=== PATIENT | male | born 1965 | race African-American/Black ===

== ENCOUNTER 2021-05-11 09:52 | Inpatient (IN) | payer MEDICAID ==
[~2021-05-11] VITALS: Ht 175.3 cm; Wt 97.2 kg
[2021-05-11] MEDS ORDERED: ASPIRIN (09:55)
[2021-05-11] MEDS ORDERED: GLIPIZIDE (09:55)
[2021-05-11] MEDS ORDERED: HYDROCHLOROTHIAZIDE PO (09:55)
[2021-05-11] MEDS ORDERED: MORPHINE SULFATE 4 MG/ML CPJ (NOT FOR IM USE) IV STA (10:04)
[2021-05-11] MEDS ORDERED: ONDANSETRON HCL 4MG/2ML INJ IV STA (10:04)
[2021-05-11] MEDS ORDERED: ASPIRIN 325MG EC TABLET PO ONE (10:15)
[2021-05-11] MEDS ORDERED: SODIUM CHLORIDE 0.9% 1,000 ML IV ONE (10:15)
[2021-05-11 10:34] LABS: HEMATOCRIT. 42.4 % (42.0-52.0); HEMOGLOBIN. 13.8 g/dL (14.0-18.0); MEAN CORPUSCULAR HEMOGLOBIN 30.5 pg (28.0-32.0); MEAN CORPUSCULAR VOLUME 93.5 fL (80.0-94.0); MEAN PLATELET VOLUME 9.6 fl (7.4-10.4); PLATELET 236 x1000/uL (130-400); RED BLOOD CELL COUNT 4.54 mill/uL (4.7-6.1); RED CELL DISTRIBUTION WIDTH 14.1 % (11.6-14.6)
[2021-05-11 10:39] LABS: CHLORIDE 106 mEq/L (98-107)
[2021-05-11 10:44] LABS: INR 1.2; PROTHROMBIN TIME 12.5 sec (9.6-11.0)
[2021-05-11] MEDS ORDERED: AZITHROMYCIN 500 MG in DEXT 5% WATER 250 ML IV ONE (10:45)
[2021-05-11] MEDS ORDERED: CEFTRIAXONE 1 G PREMIX 50 ML IV ONE (10:45)
[2021-05-11] MEDS ORDERED: IOHEXOL 350 MG/ML 200ML INFUS..BTL IV ONE (12:41)
[2021-05-11] MEDS ORDERED: IOHEXOL-300 100 ML BOTTLE ONE (12:41)
[2021-05-11 13:48] LABS: PLATELET ESTIMATE NORMAL
[2021-05-11 15:10] VITALS: BP_SYST 124; BP_SYST 167; BP_DIAS 94
[2021-05-11] MEDS ORDERED: ATOR10TA69 PO (15:54)
[2021-05-11] MEDS: ENOXAPARIN 30MG/0.3ML SYR SUBCUT SCH (16:39)
[2021-05-11 20:00] VITALS: BP 135/102
[2021-05-11] MEDS: ATORVASTATIN CALCIUM 10MG TABLET PO SCH (22:31)
[2021-05-12] VITALS: BP 118/84
[2021-05-12 04:00] VITALS: BP 117/80
[2021-05-12] MEDS: ENOXAPARIN 30MG/0.3ML SYR SUBCUT SCH ×2 (05:01→18:09)
[2021-05-12 05:42] LABS: CHLORIDE 108 mEq/L (98-107)
[2021-05-12 06:30] LABS: BASOPHILS % 0.4 % (0.0-2.0); HEMATOCRIT. 39.1 % (42.0-52.0); HEMOGLOBIN. 12.6 g/dL (14.0-18.0); LYMPHOCYTES % 19.2 % (20.0-50.0); MEAN CORPUSCULAR HEMOGLOBIN 30.3 pg (28.0-32.0); MEAN CORPUSCULAR VOLUME 93.7 fL (80.0-94.0); MEAN PLATELET VOLUME 10.2 fl (7.4-10.4); MONOCYTES % 9.8 % (2.0-8.0); NEUTROPHILS % 69.6 % (40.0-76.0); PLATELET 227 x1000/uL (130-400); RED BLOOD CELL COUNT 4.17 mill/uL (4.7-6.1); RED CELL DISTRIBUTION WIDTH 14.6 % (11.6-14.6)
[2021-05-12 08:38] VITALS: BP 125/78
[2021-05-12] MEDS ORDERED: CEFTRIAXONE 1 G PREMIX 50 ML IV SCH (09:00)
[2021-05-12] MEDS: AZITHROMYCIN 500 MG in DEXT 5% WATER 250 ML IV SCH (09:12)
[2021-05-12] MEDS: GLIPIZIDE 5MG TABLET PO SCH (09:12)
[2021-05-12] MEDS: ASPIRIN 81MG TABLET PO SCH (09:12)
[2021-05-12] MEDS: HYDROCHLOROTHIAZIDE 25MG TABLET PO SCH (09:19)
[2021-05-12 12:00] VITALS: BP 123/51
[2021-05-12] MEDS: CEFTRIAXONE 1,000 MG in DEXTROSE 5% WATER 50 ML IV SCH (12:22)
[2021-05-12 13:39] LABS: BG BASE EXCESS 2.5 mmol/L (-2.0-2.0); BG CARBOXYHEMOGLOBIN 0.6 % (0.5-1.5); BG DEOXYHEMOGLOBIN 8.8 % (0.0-5.0); BG HCO3 ACT 25.8 mmol/L (22.0-26.0); BG METHEMOGLOBIN 0.2 % (0.0-1.5); BG OXYGEN SATURATION 91.1 % (92.0-98.5); BG OXYHEMOGLOBIN 90.4 % (94.0-97.0); BG PH 7.474 (7.350-7.450); BG SAMPLE SITE RIGHT RADIAL; BG TOTAL HEMOGLOBIN 14.1 g/dL (12.0-18.0); BG VENT MODE ROOM AIR
[2021-05-12 16:49] VITALS: BP 129/66
[2021-05-12 20:00] VITALS: BP 147/107
[2021-05-12] MEDS: ATORVASTATIN CALCIUM 10MG TABLET PO SCH (21:17)
[2021-05-13 04:00] VITALS: BP 158/112
[2021-05-13] MEDS: ENOXAPARIN 30MG/0.3ML SYR SUBCUT SCH ×2 (05:00→16:48)
[2021-05-13 06:34] LABS: CHLORIDE 106 mEq/L (98-107)
[2021-05-13] MEDS: GLIPIZIDE 5MG TABLET PO SCH (07:10)
[2021-05-13] MEDS ORDERED: MIDAZOLAM HCL 5 MG/5 ML VIAL ONE (07:57)
[2021-05-13] MEDS ORDERED: FENTANYL CITRATE/PF 50MCG/ML 5ML VIAL ONE (07:57)
[2021-05-13] MEDS ORDERED: VERAPAMIL HCL 2.5 MG/1 ML 2ML VIAL IV ONE (07:57)
[2021-05-13] MEDS ORDERED: IOHEXOL-300 100 ML BOTTLE ONE (07:58)
[2021-05-13] MEDS ORDERED: LIDOCAINE HCL 1% 20ML VIAL (Pyxis) INJ ONE (07:58)
[2021-05-13] MEDS ORDERED: IODIXANOL 320MG/ML 100 ML BOTTLE IV ONE (07:58)
[2021-05-13 08:00] VITALS: BP 155/113
[2021-05-13] MEDS ORDERED: POTASSIUM CHLORIDE 10MEQ TABLET SR PO NR (08:00)
[2021-05-13] MEDS: AZITHROMYCIN 500 MG in DEXT 5% WATER 250 ML IV SCH (08:29)
[2021-05-13] MEDS: ASPIRIN 81MG TABLET PO SCH (08:29)
[2021-05-13] MEDS: HYDROCHLOROTHIAZIDE 25MG TABLET PO SCH (08:48)
[2021-05-13 09:22] LABS: *AMPHETAMINES SCREEN URINE NEGATIVE (NEGATIVE); *BARBITURATES SCREEN URINE NEGATIVE (NEGATIVE); *BENZODIAZEPINES SCREEN URINE NEGATIVE (NEGATIVE); *COCAINE SCREEN URINE NEGATIVE (NEGATIVE); METHADONE URINE SCREEN NEGATIVE (NEGATIVE)
[2021-05-13 09:24] LABS: CANNABINOID URINE SCREEN NEGATIVE (NEGATIVE); OPIATES URINE SCREEN NEGATIVE (NEGATIVE); PHENCYCLIDINE URINE SCREEN NEGATIVE (NEGATIVE)
[2021-05-13] MEDS ORDERED: ACETAMINOPHEN 325MG TABLET PO PRN (10:00)
[2021-05-13] MEDS ORDERED: FUROSEMIDE 40MG/4ML VIAL IVP NR (10:00)
[2021-05-13] MEDS ORDERED: ATROPINE SULFATE 1MG/10ML SYR IV PRN (10:00)
[2021-05-13] MEDS ORDERED: MIDAZOLAM HCL 2 MG/2 ML VIAL ONE (10:01)
[2021-05-13] MEDS ORDERED: FENTANYL CITRATE/PF 50MCG/ML 2ML VIAL ONE (10:01)
[2021-05-13] MEDS: SPIRONOLACTONE 25MG TABLET PO SCH (11:21)
[2021-05-13 12:29] VITALS: BP 139/101
[2021-05-13] MEDS: CEFTRIAXONE 1,000 MG in DEXTROSE 5% WATER 50 ML IV SCH (13:28)
[2021-05-13] MEDS: LISINOPRIL 5MG TABLET PO SCH (13:56)
[2021-05-13 16:00] VITALS: BP 127/106
[2021-05-13 20:07] VITALS: BP 130/80
[2021-05-13] MEDS: ATORVASTATIN CALCIUM 10MG TABLET PO SCH (21:33)
[2021-05-14 00:06] VITALS: BP 136/89
[2021-05-14 04:00] VITALS: BP 138/91
[2021-05-14] MEDS: ENOXAPARIN 30MG/0.3ML SYR SUBCUT SCH (05:14)
[2021-05-14] MEDS: GLIPIZIDE 5MG TABLET PO SCH (06:40)
[2021-05-14 07:15] LABS: CHLORIDE 105 mEq/L (98-107)
[2021-05-14 07:16] LABS: BASOPHILS % 0.9 % (0.0-2.0); EOSINOPHILS % 2.2 % (0.0-5.0); HEMATOCRIT. 40.4 % (42.0-52.0); HEMOGLOBIN. 13.3 g/dL (14.0-18.0); MEAN CORPUSCULAR HEMOGLOBIN 30.6 pg (28.0-32.0); MEAN CORPUSCULAR VOLUME 93.1 fL (80.0-94.0); MEAN PLATELET VOLUME 9.7 fl (7.4-10.4); MONOCYTES % 8.7 % (2.0-8.0); NEUTROPHILS % 67.2 % (40.0-76.0); PLATELET 347 x1000/uL (130-400); RED BLOOD CELL COUNT 4.34 mill/uL (4.7-6.1); RED CELL DISTRIBUTION WIDTH 14.2 % (11.6-14.6)
[2021-05-14 08:00] VITALS: BP 133/104
[2021-05-14] MEDS ORDERED: FUROSEMIDE 40MG TABLET PO SCH (09:00)
[2021-05-14] MEDS: AZITHROMYCIN 500 MG in DEXT 5% WATER 250 ML IV SCH (10:20)
[2021-05-14] MEDS: LISINOPRIL 5MG TABLET PO SCH (10:21)
[2021-05-14] MEDS: SPIRONOLACTONE 25MG TABLET PO SCH (10:21)
[2021-05-14] MEDS: ASPIRIN 81MG TABLET PO SCH (10:21)
[2021-05-14] MEDS ORDERED: LISI-186 PO (10:48)
[2021-05-14] MEDS ORDERED: FURO40TA5 PO (10:48)
[2021-05-14] MEDS ORDERED: SPIR25TA PO (10:48)
[2021-05-14] MEDS ORDERED: ATOR10TA PO (10:48)
[2021-05-14] MEDS ORDERED: AZIT250T12 MT (10:48)
[2021-05-14] MEDS ORDERED: ASPI-1160 PO (10:48)
[2021-05-14 12:56] VITALS: BP 135/100
== END 2021-05-14 13:18 | disposition home or self-care (01) | DRG 720 ==
LOC: ER 09:56 → 7WST 12:29 → EDBEDREQ 12:34 → ENRESERV 14:33 → 8WST 05-12 05:20
PROVIDERS: ADMIT Internal Medicine; ATTEND Internal Medicine
PROC: 4A023N7 Measurement of Cardiac Sampling and Pressure, Left Heart, Percutaneous Approach (ICD-10-PCS; principal; 2021-05-13)
PROC: B211YZZ Fluoroscopy of Multiple Coronary Arteries using Other Contrast (ICD-10-PCS; 2021-05-13)
PROC: B215YZZ Fluoroscopy of Left Heart using Other Contrast (ICD-10-PCS; 2021-05-13)
DX: A41.9 Sepsis, unspecified organism (principal); J96.01 Acute respiratory failure with hypoxia; I21.4 Non-ST elevation (NSTEMI) myocardial infarction; I50.21 Acute systolic (congestive) heart failure; I11.0 Hypertensive heart disease with heart failure; J18.9 Pneumonia, unspecified organism; I42.8 Other cardiomyopathies; Z20.822 Contact with and (suspected) exposure to COVID-19; E11.9 Type 2 diabetes mellitus without complications; I25.10 Atherosclerotic heart disease of native coronary artery without angina pectoris; F17.210 Nicotine dependence, cigarettes, uncomplicated; Z79.899 Other long term (current) drug therapy; Z71.6 Tobacco abuse counseling
CPT/HCPCS: 36415; 36600; 71045; 71260; 74177; 80048; 80053; 80305; 82375; 82805; 83605; 83880; 84484; 85025; 93005; 93306; 93458; 99291; C1769; C1887; C1893; J0456; J0696; J1644; J1650; J1940; J2250; J2270; J2405; J3010; J3490; J7030; J7060; Q9967; U0003; U0005

== ENCOUNTER 2023-04-04 15:40 | Emergency (ER) | payer MEDICAID, OTHER ==
[~2023-04-04] VITALS: Ht 177.8 cm; Wt 77.0 kg
[~2023-04-04 15:40] MED LIST: ASPI-1160 PO; ASPIRIN; ATOR10TA PO; ATOR10TA69 PO; AZIT250T12 MT; FURO40TA5 PO; GLIPIZIDE; HYDROCHLOROTHIAZIDE PO; LISI-186 PO; SPIR25TA PO
[2023-04-04 16:52] LABS: BASOPHILS % 0.7 % (0.0-2.0); EOSINOPHILS % 1.7 % (0.0-5.0); HEMATOCRIT. 44.3 % (42.0-52.0); HEMOGLOBIN. 14.6 g/dL (14.0-18.0); LYMPHOCYTES % 20.8 % (20.0-50.0); MEAN CORPUSCULAR HEMOGLOBIN 30.8 pg (28.0-32.0); MEAN CORPUSCULAR VOLUME 93.1 fL (80.0-94.0); MEAN PLATELET VOLUME 9.5 fl (7.4-10.4); NEUTROPHILS % 69.8 % (40.0-76.0); PLATELET 248 x1000/uL (130-400); RED BLOOD CELL COUNT 4.76 mill/uL (4.7-6.1); RED CELL DISTRIBUTION WIDTH 13.6 % (11.6-14.6)
[2023-04-04 16:55] LABS: INR 1.2; PROTHROMBIN TIME 12.4 sec (9.6-11.0)
[2023-04-04 16:56] LABS: CHLORIDE 109 mEq/L (98-107)
[2023-04-04 17:11] LABS: ETHANOL BLOOD < 10 mg/dL
[2023-04-04] MEDS ORDERED: HYDRALAZINE 20MG/ML VIAL IV ONE (17:30)
[2023-04-04] MEDS ORDERED: AZITHROMYCIN 500MG/250ML 250 ML IV ONE (18:45)
[2023-04-04] MEDS ORDERED: FUROSEMIDE 40MG/4ML VIAL IVP ONE (18:45)
[2023-04-04] MEDS ORDERED: TRAZODONE HCL 50MG TABLET PO SCH (18:45)
[2023-04-04] MEDS ORDERED: CEFTRIAXONE 1GM PREMIX 50 ML IV ONE (18:45)
[2023-04-04] MEDS ORDERED: DIPHENHYDRAMINE 50MG/ML VIAL IV ONE (18:45)
[2023-04-04 19:04] LABS: CLARITY URINE CLEAR (CLEAR); COLOR URINE DARK YELLOW (YELLOW); KETONES URINE TRACE (NEGATIVE); LEUKOCYTE ESTERASE URINE TRACE (NEGATIVE); NITRITE URINE NEGATIVE (NEGATIVE); OCCULT BLOOD URINE 2+ (NEGATIVE); PH URINE 5.5 (4.5-8.0); PROTEIN URINE 4+ (NEGATIVE); SPECIFIC GRAVITY URINE 1.038 (1.005-1.030)
[2023-04-04] MEDS ORDERED: MAGNESIUM 2 G PREMIX 50 ML IV NR (19:45)
[2023-04-04] MEDS ORDERED: MAGNESIUM 2 G PREMIX 50 ML IV ONE (19:45)
[2023-04-04 22:42] VITALS: BP 144/99
== END 2023-04-04 22:57 | disposition short-term general hospital (02) ==
LOC: ER 15:40 → CANBEDREQ 04-05 19:39
DX: I11.0 Hypertensive heart disease with heart failure (principal); I50.9 Heart failure, unspecified; J18.9 Pneumonia, unspecified organism; G47.00 Insomnia, unspecified; E11.9 Type 2 diabetes mellitus without complications; Z20.822 Contact with and (suspected) exposure to COVID-19
CPT/HCPCS: 36415; 71045; 80053; 80320; 81003; 83605; 83735; 83880; 84443; 84484; 85025; 85610; 87040; 87426; 87804; 93005; 96365; 96366; 96367; 96375; 99291; C9803; J0360; J0456; J0696; J1200; J1940; J3475; G0480

== ENCOUNTER 2023-12-02 02:42 | Emergency (ER) | payer OTHER ==
[~2023-12-02] VITALS: Ht 175.3 cm; Wt 82.0 kg
[2023-12-02 02:42] VITALS: TEMP 98.5; O2SAT 98
[~2023-12-02 02:42] MED LIST changes: +AMLO10TA80 PO; +APIX5TAB PO; -ASPI-1160 PO; +ASPI-1406 PO; -ASPIRIN; -ATOR10TA PO; -ATOR10TA69 PO; +ATOR20TA PO; -AZIT250T12 MT; +CARV25TA47 PO; +CELE-116 PO; +DICL100G58 TP; +DIGO125T80 MT; +DULO30CA52 PO; +ERGO1250 PO; +FURO-152 MT; -FURO40TA5 PO; +GABA-290 PO; +GLIP5TAB22 PO; -GLIPIZIDE; +HYDR100T31 PO; -HYDROCHLOROTHIAZIDE PO; +METO2.5T2 MT; +TRAM50TA3 PO; +TRAZ-251 PO; +ZOLP5TAB2 PO
[2023-12-02 03:19] LABS: BASOPHILS % 0.9 % (0.0-2.0); EOSINOPHILS % 1.7 % (0.0-5.0); HEMATOCRIT. 39.9 % (42.0-52.0); HEMOGLOBIN. 12.7 g/dL (14.0-18.0); LYMPHOCYTES % 24.5 % (20.0-50.0); MEAN CORPUSCULAR HEMOGLOBIN 27.7 pg (28.0-32.0); MEAN CORPUSCULAR HGB CONC 31.8 g/dL (31.0-37.0); MEAN CORPUSCULAR VOLUME 87.1 fL (80.0-94.0); MEAN PLATELET VOLUME 8.6 fl (7.4-10.4); MONOCYTES % 7.9 % (2.0-8.0); PLATELET 253 x1000/uL (130-400); RED BLOOD CELL COUNT 4.58 mill/uL (4.7-6.1); RED CELL DISTRIBUTION WIDTH 15.9 % (11.6-14.6); WHITE BLOOD COUNT 6.7 x1000/uL (4.5-11.0)
[2023-12-02 04:01] LABS: ALANINE AMINOTRANSFERASE 15 IU/L (10-49); ALBUMIN 3.2 g/dL (3.2-4.8); ASPARTATE AMINOTRANSFERASE 22 IU/L (<34); BILIRUBIN TOTAL 0.5 mg/dL (0.1-1.0); CALCIUM 8.5 mg/dL (8.7-10.4); CARBON DIOXIDE 28 mEq/L (21-32); CHLORIDE 101 mEq/L (98-107); GLUCOSE 100 mg/dL (70-105); POTASSIUM 4.2 mEq/L (3.5-5.1); PROTEIN TOTAL 6.8 g/dL (6.0-8.3); SODIUM 136 mEq/L (136-145); TROPONIN I HIGH SENSITIVITY 28 ng/L (3.0-53); UREA NITROGEN BLOOD 22 mg/dL (9-23)
[2023-12-02 04:05] LABS: ETHANOL BLOOD < 10 mg/dL (<10)
[2023-12-02] MEDS ORDERED: FUROSEMIDE 40MG/4ML VIAL IVP ONE (05:15)
[2023-12-02 06:12] LABS: TROPONIN I HIGH SENSITIVITY 27 ng/L (3.0-53)
[2023-12-02 07:21] VITALS: BP 110/69; PULSE 79; RESP 18
== END 2023-12-02 08:09 | disposition home or self-care (01) ==
LOC: ER 02:42
DX: I50.9 Heart failure, unspecified (principal); R06.02 Shortness of breath; E11.9 Type 2 diabetes mellitus without complications; I11.0 Hypertensive heart disease with heart failure; I48.91 Unspecified atrial fibrillation; E78.00 Pure hypercholesterolemia, unspecified
CPT/HCPCS: 80053; 80320; 83880; 85025; 84484; 36415; 71045; 93005; 96374; 99285; J1940; G0480

== ENCOUNTER 2024-01-28 01:49 | Emergency (ER) | payer OTHER ==
[~2024-01-28] VITALS: Ht 182.9 cm; Wt 100.0 kg
[2024-01-28 01:51] VITALS: O2SAT 100
[2024-01-28 03:06] LABS: BASOPHILS % 0.8 % (0.0-2.0); EOSINOPHILS % 0.8 % (0.0-5.0); HEMATOCRIT. 40.8 % (42.0-52.0); HEMOGLOBIN. 12.8 g/dL (14.0-18.0); LYMPHOCYTES % 18.8 % (20.0-50.0); MEAN CORPUSCULAR HEMOGLOBIN 27.6 pg (28.0-32.0); MEAN CORPUSCULAR HGB CONC 31.4 g/dL (31.0-37.0); MEAN PLATELET VOLUME 8.5 fl (7.4-10.4); MONOCYTES % 9.2 % (2.0-8.0); NEUTROPHILS % 70.4 % (40.0-76.0); PLATELET 195 x1000/uL (130-400); RED BLOOD CELL COUNT 4.63 mill/uL (4.7-6.1); RED CELL DISTRIBUTION WIDTH 20.6 % (11.6-14.6); WHITE BLOOD COUNT 6.9 x1000/uL (4.5-11.0)
[2024-01-28 03:19] LABS: ALANINE AMINOTRANSFERASE 28 IU/L (10-49); ALBUMIN 3.4 g/dL (3.2-4.8); ASPARTATE AMINOTRANSFERASE 41 IU/L (<34); BILIRUBIN TOTAL 1.5 mg/dL (0.1-1.0); CARBON DIOXIDE 26 mEq/L (21-32); CHLORIDE 104 mEq/L (98-107); CREATININE 1.3 mg/dL (0.6-1.3); GLUCOSE 105 mg/dL (70-105); POTASSIUM 4.3 mEq/L (3.5-5.1); PROTEIN TOTAL 6.4 g/dL (6.0-8.3); SODIUM 135 mEq/L (136-145); TROPONIN I HIGH SENSITIVITY 37 ng/L (3.0-53); UREA NITROGEN BLOOD 24 mg/dL (9-23)
[2024-01-28 03:26] LABS: INR 1.6; PARTIAL THROMBOPLASTIN TIME 28.5 sec (23.4-31.0); PROTHROMBIN TIME 17.2 sec (9.6-11.0)
[2024-01-28 03:53] LABS: CALCIUM 8.5 mg/dL (8.7-10.4)
[2024-01-28 04:51] LABS: TROPONIN I HIGH SENSITIVITY 45 ng/L (3.0-53)
[2024-01-28] MEDS: FUROSEMIDE 40MG/4ML VIAL IV ONE (05:23)
[2024-01-28] MEDS: ASPIRIN 81MG TABLET PO ONE (05:24)
[2024-01-28] MEDS: ASPIRIN 81MG TABLET PO NR (05:24)
[2024-01-28] MEDS: FUROSEMIDE 40MG/4ML VIAL IV NR (05:25)
[2024-01-28 06:38] VITALS: BP 129/97; PULSE 107; RESP 20; TEMP 97.6
== END 2024-01-28 07:51 | disposition short-term general hospital (02) ==
LOC: ER 01:49
DX: R07.9 Chest pain, unspecified (principal); I11.0 Hypertensive heart disease with heart failure; I50.9 Heart failure, unspecified
CPT/HCPCS: 80053; 83880; 85025; 85610; 85730; 84484; 36415; 71045; 93005; 96374; 99285; Z7610; J1940

== ENCOUNTER 2024-02-12 00:44 | Emergency (ER) | payer OTHER ==
[~2024-02-12] VITALS: Ht 177.8 cm; Wt 96.0 kg
[2024-02-12 00:46] VITALS: O2SAT 99
[2024-02-12 01:31] LABS: BASOPHILS % 1.2 % (0.0-2.0); EOSINOPHILS % 1.3 % (0.0-5.0); HEMOGLOBIN. 11.6 g/dL (14.0-18.0); LYMPHOCYTES % 13.7 % (20.0-50.0); MEAN CORPUSCULAR HEMOGLOBIN 27.9 pg (28.0-32.0); MEAN CORPUSCULAR HGB CONC 31.3 g/dL (31.0-37.0); MEAN CORPUSCULAR VOLUME 89.2 fL (80.0-94.0); MEAN PLATELET VOLUME 8.8 fl (7.4-10.4); MONOCYTES % 9.5 % (2.0-8.0); NEUTROPHILS % 74.3 % (40.0-76.0); PLATELET 242 x1000/uL (130-400); RED BLOOD CELL COUNT 4.15 mill/uL (4.7-6.1); RED CELL DISTRIBUTION WIDTH 21.1 % (11.6-14.6); WHITE BLOOD COUNT 6.6 x1000/uL (4.5-11.0)
[2024-02-12 01:53] LABS: ALANINE AMINOTRANSFERASE 24 IU/L (10-49); ALBUMIN 3.3 g/dL (3.2-4.8); ASPARTATE AMINOTRANSFERASE 34 IU/L (<34); BILIRUBIN TOTAL 0.8 mg/dL (0.1-1.0); CALCIUM 7.9 mg/dL (8.7-10.4); CARBON DIOXIDE 27 mEq/L (21-32); CHLORIDE 108 mEq/L (98-107); CREATININE 1.1 mg/dL (0.6-1.3); GLUCOSE 82 mg/dL (70-105); POTASSIUM 4.1 mEq/L (3.5-5.1); PROTEIN TOTAL 6.2 g/dL (6.0-8.3); SODIUM 141 mEq/L (136-145); TROPONIN I HIGH SENSITIVITY 36 ng/L (3.0-53); UREA NITROGEN BLOOD 19 mg/dL (9-23)
[2024-02-12 02:55] LABS: INR 1.3; PROTHROMBIN TIME 14.2 sec (9.6-11.0)
[2024-02-12 04:26] LABS: CLARITY URINE CLEAR (CLEAR); COLOR URINE YELLOW (YELLOW); GLUCOSE URINE NEGATIVE (NEGATIVE); KETONES URINE TRACE (NEGATIVE); LEUKOCYTE ESTERASE URINE NEGATIVE (NEGATIVE); NITRITE URINE NEGATIVE (NEGATIVE); OCCULT BLOOD URINE NEGATIVE (NEGATIVE); PH URINE 5.5 (4.5-8.0); PROTEIN URINE 3+ (NEGATIVE); SPECIFIC GRAVITY URINE 1.023 (1.005-1.030)
[2024-02-12 07:42] LABS: TROPONIN I HIGH SENSITIVITY 36 ng/L (3.0-53)
[2024-02-12 08:30] LABS: WBC URINE 0-2 /hpf (0-2)
[2024-02-12 08:31] LABS: BACTERIA URINE NONE SEEN; SQUAMOUS EPITHELIAL CELL URINE NONE SEEN /lpf (RARE/1+)
[2024-02-12 09:49] VITALS: BP 143/105; PULSE 88; RESP 20; TEMP 98.3
== END 2024-02-12 10:39 | disposition short-term general hospital (02) ==
LOC: ER 00:44 → EDBEDREQ 06:24 → ER 10:39
DX: M79.89 Other specified soft tissue disorders (principal); I11.0 Hypertensive heart disease with heart failure; I50.9 Heart failure, unspecified; F17.200 Nicotine dependence, unspecified, uncomplicated
CPT/HCPCS: 36415; 71045; 80053; 81003; 83880; 84484; 85025; 93005; 99285

== ENCOUNTER 2024-04-16 19:14 | Emergency (ER) | payer OTHER ==
[~2024-04-16] VITALS: Ht 177.8 cm; Wt 90.0 kg
[2024-04-16 19:17] VITALS: BP 170/90; PULSE 90; RESP 19; TEMP 98.1; O2SAT 100
== END 2024-04-16 22:45 | disposition left against medical advice (07) ==
LOC: ER 19:14
DX: T65.91XA Toxic effect of unspecified substance, accidental (unintentional), initial encounter (principal); Z53.21 Procedure and treatment not carried out due to patient leaving prior to being seen by health care provider

== ENCOUNTER 2024-05-22 23:46 | Emergency (ER) | payer OTHER ==
[~2024-05-22] VITALS: Ht 175.3 cm; Wt 91.0 kg
[2024-05-22 23:47] VITALS: TEMP 98.4
[2024-05-23 00:12] LABS: BASOPHILS % 0.6 % (0.0-2.0); EOSINOPHILS % 1.2 % (0.0-5.0); HEMATOCRIT. 43.1 % (42.0-52.0); HEMOGLOBIN. 13.6 g/dL (14.0-18.0); LYMPHOCYTES % 13.7 % (20.0-50.0); MEAN CORPUSCULAR HEMOGLOBIN 29.8 pg (28.0-32.0); MEAN CORPUSCULAR HGB CONC 31.6 g/dL (31.0-37.0); MEAN CORPUSCULAR VOLUME 94.4 fL (80.0-94.0); MEAN PLATELET VOLUME 9.1 fl (7.4-10.4); MONOCYTES % 9.1 % (2.0-8.0); NEUTROPHILS % 75.4 % (40.0-76.0); PLATELET 179 x1000/uL (130-400); RED BLOOD CELL COUNT 4.57 mill/uL (4.7-6.1); RED CELL DISTRIBUTION WIDTH 17.2 % (11.6-14.6); WHITE BLOOD COUNT 7.2 x1000/uL (4.5-11.0)
[2024-05-23 00:20] LABS: CHLORIDE 106 mEq/L (98-107); POTASSIUM 4.4 mEq/L (3.5-5.1); SODIUM 140 mEq/L (136-145)
[2024-05-23 00:21] LABS: CALCIUM 8.6 mg/dL (8.7-10.4); CARBON DIOXIDE 29 mEq/L (21-32)
[2024-05-23 00:23] LABS: INR 1.4; PARTIAL THROMBOPLASTIN TIME 27.1 sec (23.4-31.0); PROTHROMBIN TIME 14.8 sec (9.6-11.0)
[2024-05-23 00:26] LABS: CREATININE 1.3 mg/dL (0.6-1.3); GLUCOSE 126 mg/dL (70-105); UREA NITROGEN BLOOD 19 mg/dL (9-23)
[2024-05-23 00:28] LABS: TROPONIN I HIGH SENSITIVITY 36 ng/L (3.0-53)
[2024-05-23 00:32] LABS: ETHANOL BLOOD < 10 mg/dL (<10)
[2024-05-23 00:44] VITALS: PULSE 93; RESP 22; O2SAT 98
[2024-05-23] MEDS: IPRATROPIUM BROMIDE (0.02%) 0.5MG/2.5ML NEB HHN STA (00:44)
[2024-05-23] MEDS: ALBUTEROL (0.083%) 2.5MG/3ML NEB HHN STA (00:44)
[2024-05-23] MEDS: FUROSEMIDE 40MG/4ML VIAL IVP NR (02:03)
[2024-05-23] MEDS: ASPIRIN 81MG TABLET PO NR (02:18)
[2024-05-23 03:14] VITALS: BP 152/111; PULSE 97; RESP 16
== END 2024-05-23 03:25 | disposition short-term general hospital (02) ==
LOC: ER 23:46 → CANBEDREQ 05-24 22:38
DX: J44.1 Chronic obstructive pulmonary disease with (acute) exacerbation (principal); I50.9 Heart failure, unspecified; I11.0 Hypertensive heart disease with heart failure; Z71.6 Tobacco abuse counseling
CPT/HCPCS: 80048; 80320; 83880; 85025; 85610; 85730; 84484; 36415; 71045; 93005; 99285; 99406; 94640; 96374; Z7610 ×7; J1940; G0480

== ENCOUNTER 2024-07-01 17:05 | Emergency (ER) | payer OTHER ==
[~2024-07-01] VITALS: Ht 180.3 cm; Wt 91.0 kg
[2024-07-01 17:07] VITALS: O2SAT 99
[2024-07-01 18:36] LABS: BASOPHILS % 1.5 % (0.0-2.0); HEMATOCRIT. 45.8 % (42.0-52.0); HEMOGLOBIN. 14.3 g/dL (14.0-18.0); LYMPHOCYTES % 21.7 % (20.0-50.0); MEAN CORPUSCULAR HEMOGLOBIN 29.8 pg (28.0-32.0); MEAN CORPUSCULAR HGB CONC 31.3 g/dL (31.0-37.0); MEAN CORPUSCULAR VOLUME 95.1 fL (80.0-94.0); MEAN PLATELET VOLUME 9.2 fl (7.4-10.4); MONOCYTES % 6.4 % (2.0-8.0); NEUTROPHILS % 68.4 % (40.0-76.0); PLATELET 177 x1000/uL (130-400); RED BLOOD CELL COUNT 4.81 mill/uL (4.7-6.1); WHITE BLOOD COUNT 6.4 x1000/uL (4.5-11.0)
[2024-07-01 18:41] LABS: CHLORIDE 108 mEq/L (98-107); POTASSIUM 4.2 mEq/L (3.5-5.1); SODIUM 140 mEq/L (136-145)
[2024-07-01 18:42] LABS: CARBON DIOXIDE 25 mEq/L (21-32)
[2024-07-01 18:43] LABS: CALCIUM 9.4 mg/dL (8.7-10.4)
[2024-07-01 18:48] LABS: CREATININE 1.2 mg/dL (0.6-1.3); GLUCOSE 89 mg/dL (70-105); UREA NITROGEN BLOOD 17 mg/dL (9-23)
[2024-07-01 18:49] LABS: ALANINE AMINOTRANSFERASE 20 IU/L (10-49); ASPARTATE AMINOTRANSFERASE 31 IU/L (<34)
[2024-07-01 18:50] LABS: BILIRUBIN DIRECT 0.7 mg/dL (<=3.0); BILIRUBIN TOTAL 1.7 mg/dL (0.1-1.0); PROTEIN TOTAL 7.3 g/dL (6.0-8.3)
[2024-07-01 20:00] LABS: TROPONIN I HIGH SENSITIVITY 57 ng/L (3.0-53)
[2024-07-01] MEDS ORDERED: FUROSEMIDE 20MG/2ML VIAL IVP ONE (20:15)
[2024-07-01] MEDS: FUROSEMIDE 40MG/4ML VIAL IVP NR (21:48)
[2024-07-01] MEDS: ASPIRIN 81MG EC TABLET PO ONE (21:48)
[2024-07-01 22:17] VITALS: BP 149/110; PULSE 92; RESP 20; TEMP 98.1
[2024-07-01] MEDS: FUROSEMIDE 40MG/4ML VIAL IVP ONE (22:18)
== END 2024-07-01 22:50 | disposition short-term general hospital (02) ==
LOC: ER 17:05
DX: R06.02 Shortness of breath (principal); I11.0 Hypertensive heart disease with heart failure; I50.9 Heart failure, unspecified; Z79.899 Other long term (current) drug therapy
CPT/HCPCS: 80076; 80048; 83880; 85025; 84484; 36415; 71045; 93005; 96374; 99291; J1940; Z7610 ×3

== ENCOUNTER 2024-10-31 04:39 | Inpatient (IN) | payer BC, MEDICAID ==
[~2024-10-31] VITALS: Ht 175.3 cm; Wt 80.7 kg
[~2024-10-31 04:39] MED LIST changes: -ZOLP5TAB2 PO
[2024-10-31] MEDS: ASPIRIN 325MG TABLET PO ONE (05:33)
[2024-10-31] MEDS: MAGNESIUM 2 G PREMIX 50 ML IV ONE (06:06)
[2024-10-31 06:10] LABS: BASOPHILS % 0.7 % (0.0-2.0); EOSINOPHILS % 0.4 % (0.0-5.0); HEMATOCRIT. 46.4 % (42.0-52.0); HEMOGLOBIN. 14.6 g/dL (14.0-18.0); LYMPHOCYTES % 17.6 % (20.0-50.0); MEAN CORPUSCULAR HEMOGLOBIN 29.7 pg (28.0-32.0); MEAN CORPUSCULAR HGB CONC 31.4 g/dL (31.0-37.0); MEAN CORPUSCULAR VOLUME 94.6 fL (80.0-94.0); MEAN PLATELET VOLUME 9.4 fl (7.4-10.4); MONOCYTES % 7.4 % (2.0-8.0); NEUTROPHILS % 73.9 % (40.0-76.0); PLATELET 197 x1000/uL (130-400); RED CELL DISTRIBUTION WIDTH 20.1 % (11.6-14.6); WHITE BLOOD COUNT 5.8 x1000/uL (4.5-11.0)
[2024-10-31 06:17] LABS: CHLORIDE 108 mEq/L (98-107); SODIUM 141 mEq/L (136-145)
[2024-10-31 06:18] LABS: CARBON DIOXIDE 25 mEq/L (21-32)
[2024-10-31 06:22] LABS: CREATININE 1.3 mg/dL (0.6-1.3)
[2024-10-31 06:23] LABS: GLUCOSE 73 mg/dL (70-105); UREA NITROGEN BLOOD 29 mg/dL (9-23)
[2024-10-31 06:24] LABS: TROPONIN I HIGH SENSITIVITY 29 ng/L (3.0-53)
[2024-10-31] MEDS ORDERED: ACETAMINOPHEN 325MG TABLET PO PRN ×2 (08:00)
[2024-10-31] MEDS ORDERED: DOCUSATE SODIUM 100MG CAPSULE PO PRN (08:00)
[2024-10-31] MEDS ORDERED: IPRATROPIUM/ALBUTEROL 0.5-3(2.5)MG/3ML NEB HHN PRN (08:00)
[2024-10-31] MEDS ORDERED: GUAIFENESIN 200MG/10ML SUGAR FREE UDC PO PRN (08:00)
[2024-10-31] MEDS ORDERED: LISINOPRIL 5MG TABLET PO SCH (09:15)
[2024-10-31] MEDS ORDERED: SPIRONOLACTONE 25MG TABLET PO SCH (09:30)
[2024-10-31 10:21] LABS: TROPONIN I HIGH SENSITIVITY 28 ng/L (3.0-53)
[2024-10-31] MEDS: APIXABAN 5 MG TABLET PO SCH (12:51)
[2024-10-31] MEDS: ASPIRIN 81MG EC TABLET PO SCH (12:51)
[2024-10-31] MEDS: AMLODIPINE 10MG TABLET PO SCH (12:52)
[2024-10-31 13:19] VITALS: PULSE 93; RESP 20
[2024-10-31] MEDS: IPRATROPIUM/ALBUTEROL 0.5-3(2.5)MG/3ML NEB HHN SCH (13:19)
[2024-10-31 14:50] VITALS: PULSE 94; RESP 24; O2SAT 97
[2024-10-31 16:00] VITALS: BP 128/101; PULSE 100; PULSE 99; RESP 16; TEMP 36.61404; TEMP 36.72516; O2SAT 100
[2024-10-31] MEDS: NITROGLYCERIN OINT 1GM/INCH UDPKT TD SCH (17:25)
[2024-10-31 20:00] VITALS: BP 128/90; PULSE 100; RESP 18; TEMP 36.44736; O2SAT 100
[2024-10-31 21:12] LABS: TROPONIN I HIGH SENSITIVITY 33 ng/L (3.0-53)
[2024-10-31] MEDS: FUROSEMIDE 40MG/4ML VIAL IVP SCH (21:41)
[2024-10-31] MEDS: ATORVASTATIN CALCIUM 20MG TABLET PO SCH (21:41)
[2024-11-01] VITALS (7 sets, daily range): BP systolic 106–137; BP diastolic 73–96; PULSE 68–101; RESP 16–20; TEMP 36.33624–36.6696; O2SAT 97–100
[2024-11-01 01:21] LABS: TROPONIN I HIGH SENSITIVITY 31 ng/L (3.0-53)
[2024-11-01] MEDS: METOLAZONE 2.5MG TABLET PO NR (05:55)
[2024-11-01 07:18] LABS: BASOPHILS % 0.5 % (0.0-2.0); HEMATOCRIT. 44.6 % (42.0-52.0); LYMPHOCYTES % 19.7 % (20.0-50.0); MEAN CORPUSCULAR HEMOGLOBIN 29.6 pg (28.0-32.0); MEAN CORPUSCULAR HGB CONC 31.5 g/dL (31.0-37.0); MEAN CORPUSCULAR VOLUME 93.9 fL (80.0-94.0); MEAN PLATELET VOLUME 9.2 fl (7.4-10.4); MONOCYTES % 10.9 % (2.0-8.0); NEUTROPHILS % 67.9 % (40.0-76.0); PLATELET 184 x1000/uL (130-400); RED BLOOD CELL COUNT 4.74 mill/uL (4.7-6.1); RED CELL DISTRIBUTION WIDTH 19.5 % (11.6-14.6); WHITE BLOOD COUNT 6.9 x1000/uL (4.5-11.0)
[2024-11-01 07:29] LABS: TRIGLYCERIDE 62 mg/dL (0-150)
[2024-11-01 07:30] LABS: LDL CHOLESTEROL 95 mg/dL (5-100)
[2024-11-01 07:31] LABS: CHOLESTEROL 128 mg/dL (<200); HDL CHOLESTEROL 23 mg/dL (>55)
[2024-11-01 07:34] LABS: CHLORIDE 105 mEq/L (98-107); SODIUM 140 mEq/L (136-145)
[2024-11-01 07:35] LABS: CARBON DIOXIDE 27 mEq/L (21-32)
[2024-11-01 07:36] LABS: CALCIUM 9.4 mg/dL (8.7-10.4)
[2024-11-01 07:40] LABS: CREATININE 1.2 mg/dL (0.6-1.3); GLUCOSE 83 mg/dL (70-105); UREA NITROGEN BLOOD 28 mg/dL (9-23)
[2024-11-01] MEDS ORDERED: FUROSEMIDE 40MG/4ML VIAL IVP SCH (09:00)
[2024-11-01 16:08] LABS: BASOPHILS % 0.7 % (0.0-2.0); EOSINOPHILS % 1.4 % (0.0-5.0); HEMATOCRIT. 46.5 % (42.0-52.0); HEMOGLOBIN. 14.6 g/dL (14.0-18.0); LYMPHOCYTES % 14.5 % (20.0-50.0); MEAN CORPUSCULAR HEMOGLOBIN 29.4 pg (28.0-32.0); MEAN CORPUSCULAR HGB CONC 31.3 g/dL (31.0-37.0); MEAN CORPUSCULAR VOLUME 93.9 fL (80.0-94.0); MONOCYTES % 9.4 % (2.0-8.0); PLATELET 191 x1000/uL (130-400); RED BLOOD CELL COUNT 4.95 mill/uL (4.7-6.1); RED CELL DISTRIBUTION WIDTH 20.3 % (11.6-14.6)
[2024-11-01 16:32] LABS: LACTIC ACID 3.2 mmol/L (0.4-2.0)
[2024-11-01] MEDS: MELATONIN 3MG TABLET PO SCH (21:47)
[2024-11-02] VITALS: BP 116/85; PULSE 68; RESP 20; TEMP 36.50292; O2SAT 100
[2024-11-02 01:43] LABS: GLUCOSE URINE NEGATIVE (NEGATIVE); KETONES URINE NEGATIVE (NEGATIVE)
[2024-11-02 01:56] LABS: *AMPHETAMINES SCREEN URINE NEGATIVE (NEGATIVE); *BARBITURATES SCREEN URINE NEGATIVE (NEGATIVE); *BENZODIAZEPINES SCREEN URINE NEGATIVE (NEGATIVE); *COCAINE SCREEN URINE NEGATIVE (NEGATIVE); METHADONE URINE SCREEN NEGATIVE (NEGATIVE)
[2024-11-02 01:57] LABS: CANNABINOID URINE SCREEN NEGATIVE (NEGATIVE); ECSTASY MDMA SCREEN URINE NEGATIVE (NEGATIVE); OPIATES URINE SCREEN NEGATIVE (NEGATIVE); PHENCYCLIDINE URINE SCREEN PRESUMTIVE POSITIVE (NEGATIVE)
[2024-11-02 04:00] VITALS: BP 104/69; PULSE 78; RESP 20; TEMP 36.55848; O2SAT 100
[2024-11-02 04:38] LABS: CLARITY URINE CLEAR (CLEAR); COLOR URINE STRAW (YELLOW); PH URINE 7.5 (4.5-8.0); PROTEIN URINE NEGATIVE (NEGATIVE); SPECIFIC GRAVITY URINE 1.007 (1.005-1.030)
[2024-11-02 04:39] LABS: LEUKOCYTE ESTERASE URINE NEGATIVE (NEGATIVE); NITRITE URINE NEGATIVE (NEGATIVE); OCCULT BLOOD URINE NEGATIVE (NEGATIVE); UROBILINOGEN URINE 0.2 E.U./dL (0.2-1.0)
[2024-11-02 07:48] VITALS: BP 116/83; PULSE 74; RESP 18; TEMP 36.50292; O2SAT 97
[2024-11-02 08:32] LABS: BASOPHILS % 0.7 % (0.0-2.0); EOSINOPHILS % 1.7 % (0.0-5.0); HEMATOCRIT. 43.4 % (42.0-52.0); HEMOGLOBIN. 14.1 g/dL (14.0-18.0); LYMPHOCYTES % 18.1 % (20.0-50.0); MEAN CORPUSCULAR HGB CONC 32.4 g/dL (31.0-37.0); MEAN CORPUSCULAR VOLUME 92.5 fL (80.0-94.0); MEAN PLATELET VOLUME 9.3 fl (7.4-10.4); MONOCYTES % 10.8 % (2.0-8.0); NEUTROPHILS % 68.7 % (40.0-76.0); PLATELET 192 x1000/uL (130-400); RED BLOOD CELL COUNT 4.69 mill/uL (4.7-6.1)
[2024-11-02 08:36] LABS: CHLORIDE 100 mEq/L (98-107); POTASSIUM 3.7 mEq/L (3.5-5.1); SODIUM 137 mEq/L (136-145)
[2024-11-02 08:37] LABS: CALCIUM 9.5 mg/dL (8.7-10.4); CARBON DIOXIDE 30 mEq/L (21-32)
[2024-11-02 08:42] LABS: CREATININE 1.4 mg/dL (0.6-1.3); GLUCOSE 86 mg/dL (70-105); TROPONIN I HIGH SENSITIVITY 33 ng/L (3.0-53); UREA NITROGEN BLOOD 31 mg/dL (9-23)
[2024-11-02 10:29] LABS: T4 FREE 1.35 ng/dL (0.89-1.76); THYROID STIMULATING HORMONE 2.68 uIU/mL (0.55-4.78)
[2024-11-02 11:41] VITALS: BP 116/80; PULSE 65; RESP 20; TEMP 36.44736; O2SAT 98
[2024-11-02] MEDS ORDERED: MELA3TAB40 PO (12:45)
[2024-11-02] MEDS ORDERED: ASPI-1406 PO (12:57)
[2024-11-02] MEDS ORDERED: ATOR20TA PO (12:57)
[2024-11-02] MEDS ORDERED: AMLO10TA80 PO (12:57)
[2024-11-02] MEDS ORDERED: CARV25TA47 PO (12:57)
[2024-11-02] MEDS ORDERED: DULO30CA52 PO ×2 (12:57→13:02)
[2024-11-02] MEDS ORDERED: ERGO1250 PO (12:57)
[2024-11-02] MEDS ORDERED: HYDR100T31 PO (12:57)
[2024-11-02] MEDS ORDERED: LISI-186 PO (12:57)
[2024-11-02] MEDS ORDERED: GLIP5TAB22 PO (12:57)
[2024-11-02] MEDS ORDERED: DIGO125T80 MT (12:57)
[2024-11-02] MEDS ORDERED: APIX5TAB PO (12:57)
[2024-11-02] MEDS ORDERED: FURO-152 MT (12:57)
[2024-11-02] MEDS ORDERED: SPIR25TA PO (12:57)
[2024-11-02 12:58] VITALS: BP 116/80; PULSE 65; TEMP 97.7; O2SAT 98
[2024-11-02 15:43] VITALS: BP 99/69; PULSE 76; RESP 19; TEMP 36.44736; O2SAT 99
== END 2024-11-02 16:46 | disposition home or self-care (01) | DRG 133 ==
LOC: ER 04:39 → 5WST 06:43 → EDBEDREQ 07:08 → EDBEDREQTM 07:08 → 7WST 11-01 23:26
PROVIDERS: ADMIT Internal Medicine; ATTEND Internal Medicine
DX: J96.01 Acute respiratory failure with hypoxia (principal); I50.23 Acute on chronic systolic (congestive) heart failure; N17.9 Acute kidney failure, unspecified; I42.9 Cardiomyopathy, unspecified; T40.991A Poisoning by other psychodysleptics [hallucinogens], accidental (unintentional), initial encounter; I13.0 Hypertensive heart and chronic kidney disease with heart failure and stage 1 through stage 4 chronic kidney disease, or unspecified chronic kidney disease; E11.22 Type 2 diabetes mellitus with diabetic chronic kidney disease; I48.91 Unspecified atrial fibrillation; N18.9 Chronic kidney disease, unspecified; E78.5 Hyperlipidemia, unspecified; E87.5 Hyperkalemia; G47.00 Insomnia, unspecified; J44.9 Chronic obstructive pulmonary disease, unspecified; I34.0 Nonrheumatic mitral (valve) insufficiency; F16.10 Hallucinogen abuse, uncomplicated; F17.200 Nicotine dependence, unspecified, uncomplicated; Z79.01 Long term (current) use of anticoagulants; Z79.82 Long term (current) use of aspirin; Z79.899 Other long term (current) drug therapy; Y92.89 Other specified places as the place of occurrence of the external cause
CPT/HCPCS: 36415; 71045; 80048; 80061; 80305; 81003; 83605; 83735; 83880; 84145; 84439; 84443; 84484; 85025; 93005; 93306; 93970; 94640; 99291; J1940; J3475

== ENCOUNTER 2024-11-28 19:34 | Emergency (ER) | payer MEDICAID ==
[~2024-11-28] VITALS: Ht 182.9 cm; Wt 84.0 kg
[~2024-11-28 19:34] MED LIST changes: -CELE-116 PO; +MELA3TAB40 PO; -TRAM50TA3 PO
[2024-11-28 19:42] VITALS: O2SAT 99
[2024-11-28] MEDS: FUROSEMIDE 40MG/4ML VIAL IVP ONE (20:27)
[2024-11-28 20:51] LABS: BASOPHILS % 0.7 % (0.0-2.0); EOSINOPHILS % 1.7 % (0.0-5.0); HEMATOCRIT. 42.3 % (42.0-52.0); HEMOGLOBIN. 13.2 g/dL (14.0-18.0); LYMPHOCYTES % 15.7 % (20.0-50.0); MEAN CORPUSCULAR HEMOGLOBIN 29.4 pg (28.0-32.0); MEAN CORPUSCULAR HGB CONC 31.1 g/dL (31.0-37.0); MEAN CORPUSCULAR VOLUME 94.7 fL (80.0-94.0); MEAN PLATELET VOLUME 9.2 fl (7.4-10.4); MONOCYTES % 8.5 % (2.0-8.0); NEUTROPHILS % 73.4 % (40.0-76.0); PLATELET 239 x1000/uL (130-400); RED BLOOD CELL COUNT 4.47 mill/uL (4.7-6.1); RED CELL DISTRIBUTION WIDTH 17.6 % (11.6-14.6); WHITE BLOOD COUNT 5.9 x1000/uL (4.5-11.0)
[2024-11-28 20:52] LABS: CHLORIDE 109 mEq/L (98-107); POTASSIUM 4.2 mEq/L (3.5-5.1); SODIUM 139 mEq/L (136-145)
[2024-11-28 20:53] LABS: CALCIUM 8.7 mg/dL (8.7-10.4); CARBON DIOXIDE 26 mEq/L (21-32)
[2024-11-28 20:58] LABS: CREATININE 1.3 mg/dL (0.6-1.3); GLUCOSE 70 mg/dL (70-105); UREA NITROGEN BLOOD 23 mg/dL (9-23)
[2024-11-28 21:02] LABS: TROPONIN I HIGH SENSITIVITY 81 ng/L (3.0-53)
[2024-11-29 00:55] VITALS: BP 131/93; PULSE 95; RESP 16; TEMP 36.39180; O2SAT 96
== END 2024-11-29 01:00 | disposition short-term general hospital (02) ==
LOC: ER 19:34 → EDBEDREQ 20:02 → CANBEDREQ 21:30 → ER 11-29 01:00
DX: I21.4 Non-ST elevation (NSTEMI) myocardial infarction (principal); I11.0 Hypertensive heart disease with heart failure; I50.9 Heart failure, unspecified; E11.9 Type 2 diabetes mellitus without complications; I48.91 Unspecified atrial fibrillation; Z79.899 Other long term (current) drug therapy
CPT/HCPCS: 80048; 83880; 85025; 84484; 36415; 71045; 93005; 96374; 99291; J1940; A4663; Z7610; A4606

== ENCOUNTER 2024-11-29 14:45 | Emergency (ER) | payer MEDICAID ==
[~2024-11-29] VITALS: Ht 182.9 cm; Wt 91.0 kg
[2024-11-29 14:50] VITALS: O2SAT 99
[2024-11-29] MEDS: SODIUM CHLORIDE 0.9% 1,000 ML IV ONE (15:00)
[2024-11-29 16:13] LABS: BASOPHILS % 0.8 % (0.0-2.0); DIFFERENTIAL COMMENT 0; EOSINOPHILS % 1.5 % (0.0-5.0); HEMATOCRIT. 41.3 % (42.0-52.0); HEMOGLOBIN. 12.9 g/dL (14.0-18.0); LYMPHOCYTES % 15.1 % (20.0-50.0); MEAN CORPUSCULAR HEMOGLOBIN 29.5 pg (28.0-32.0); MEAN CORPUSCULAR HGB CONC 31.2 g/dL (31.0-37.0); MEAN CORPUSCULAR VOLUME 94.5 fL (80.0-94.0); MEAN PLATELET VOLUME 9.1 fl (7.4-10.4); MONOCYTES % 6.1 % (2.0-8.0); NEUTROPHILS % 76.5 % (40.0-76.0); PLATELET 222 x1000/uL (130-400); RED BLOOD CELL COUNT 4.37 mill/uL (4.7-6.1); RED CELL DISTRIBUTION WIDTH 17.8 % (11.6-14.6); WHITE BLOOD COUNT 4.1 x1000/uL (4.5-11.0)
[2024-11-29 16:15] LABS: CHLORIDE 105 mEq/L (98-107); POTASSIUM 4.5 mEq/L (3.5-5.1); SODIUM 138 mEq/L (136-145)
[2024-11-29 16:16] LABS: CALCIUM 8.6 mg/dL (8.7-10.4); CARBON DIOXIDE 26 mEq/L (21-32)
[2024-11-29 16:21] LABS: GLUCOSE 110 mg/dL (70-105); UREA NITROGEN BLOOD 30 mg/dL (9-23)
[2024-11-29 16:25] LABS: INR 1.5; PROTHROMBIN TIME 16.1 sec (9.6-11.0)
[2024-11-29 16:26] LABS: CREATININE 1.9 mg/dL (0.6-1.3); ETHANOL BLOOD < 10 mg/dL (<10); TROPONIN I HIGH SENSITIVITY 66 ng/L (3.0-53)
[2024-11-29 19:40] VITALS: BP 110/66; PULSE 70; RESP 20; TEMP 36.89184; O2SAT 98
== END 2024-11-29 20:23 | disposition left against medical advice (07) ==
LOC: ER 14:45
DX: R55 Syncope and collapse (principal); I11.0 Hypertensive heart disease with heart failure; I50.9 Heart failure, unspecified; I48.91 Unspecified atrial fibrillation; E11.9 Type 2 diabetes mellitus without complications; Z79.82 Long term (current) use of aspirin; Z79.899 Other long term (current) drug therapy
CPT/HCPCS: 80048; 80320; 83880; 83690; 85025; 85610; 84484; 36415; 71045; 93005; 96360; 99285; J7030; G0480

== ENCOUNTER 2025-01-02 17:55 | Inpatient (IN) | payer MEDICAID ==
[~2025-01-02] VITALS: Ht 175.3 cm; Wt 88.1 kg
[~2025-01-02 17:55] MED LIST changes: +ATOR10TA69 PO; +CELE-116 PO; +CYCL5TAB3 PO; +FURO20TA4 PO; +OXYC30TA2 PO; +SACU1TAB PO; +SPIR25TA6; +TRAM50TA3 PO
[2025-01-02 17:56] VITALS: O2SAT 97
[2025-01-02] MEDS: ASPIRIN 81MG TABLET PO ONE (18:39)
[2025-01-02 19:00] LABS: BASOPHILS % 1.3 % (0.0-2.0); EOSINOPHILS % 1.5 % (0.0-5.0); HEMATOCRIT. 41.1 % (42.0-52.0); LYMPHOCYTES % 13.5 % (20.0-50.0); MEAN CORPUSCULAR HEMOGLOBIN 29.4 pg (28.0-32.0); MEAN CORPUSCULAR HGB CONC 31.6 g/dL (31.0-37.0); MEAN CORPUSCULAR VOLUME 93.1 fL (80.0-94.0); MEAN PLATELET VOLUME 9.2 fl (7.4-10.4); NEUTROPHILS % 72.7 % (40.0-76.0); PLATELET 191 x1000/uL (130-400); RED BLOOD CELL COUNT 4.41 mill/uL (4.7-6.1); RED CELL DISTRIBUTION WIDTH 17.8 % (11.6-14.6); WHITE BLOOD COUNT 5.6 x1000/uL (4.5-11.0)
[2025-01-02 19:08] LABS: CHLORIDE 108 mEq/L (98-107); POTASSIUM 4.5 mEq/L (3.5-5.1); SODIUM 140 mEq/L (136-145)
[2025-01-02 19:09] LABS: CARBON DIOXIDE 25 mEq/L (21-32)
[2025-01-02 19:10] LABS: CALCIUM 8.8 mg/dL (8.7-10.4)
[2025-01-02 19:12] LABS: INR 1.3; PROTHROMBIN TIME 14.1 sec (9.6-11.0)
[2025-01-02 19:14] LABS: CREATININE 1.3 mg/dL (0.6-1.3); GLUCOSE 95 mg/dL (70-105)
[2025-01-02 19:15] LABS: UREA NITROGEN BLOOD 19 mg/dL (9-23)
[2025-01-02 19:16] LABS: TROPONIN I HIGH SENSITIVITY 25 ng/L (3.0-53)
[2025-01-02] MEDS ORDERED: FUROSEMIDE 100MG/10ML VIAL IVP ONE (20:45)
[2025-01-02 21:16] LABS: CLARITY URINE CLEAR (CLEAR); COLOR URINE DARK YELLOW (YELLOW); GLUCOSE URINE NEGATIVE (NEGATIVE); KETONES URINE NEGATIVE (NEGATIVE); LEUKOCYTE ESTERASE URINE NEGATIVE (NEGATIVE); NITRITE URINE NEGATIVE (NEGATIVE); OCCULT BLOOD URINE 1+ (NEGATIVE); PH URINE 5.5 (4.5-8.0); PROTEIN URINE 3+ (NEGATIVE); SPECIFIC GRAVITY URINE 1.022 (1.005-1.030)
[2025-01-02 21:33] LABS: BACTERIA URINE NONE SEEN; RBC URINE 0-2 /hpf (0-2); SQUAMOUS EPITHELIAL CELL URINE RARE /lpf (RARE/1+); WBC URINE 0-2 /hpf (0-2)
[2025-01-02] MEDS: FUROSEMIDE 40MG/4ML VIAL IVP NR (21:37)
[2025-01-03 02:44] VITALS: BP 126/92; PULSE 103; RESP 20; TEMP 36.4
[2025-01-03 04:00] VITALS: BP 108/89; PULSE 91; RESP 20; TEMP 37.3; O2SAT 97
[2025-01-03] MEDS ORDERED: ONDANSETRON HCL 4MG/2ML INJ IV PRN (06:45)
[2025-01-03] MEDS ORDERED: ACETAMINOPHEN 325MG TABLET PO PRN ×2 (06:45)
[2025-01-03] MEDS ORDERED: IPRATROPIUM/ALBUTEROL 0.5-3(2.5)MG/3ML NEB HHN PRN (06:45)
[2025-01-03] MEDS ORDERED: DOCUSATE SODIUM 100MG CAPSULE PO PRN (06:45)
[2025-01-03 08:00] VITALS: BP 132/100; PULSE 75; RESP 19; TEMP 36.7; O2SAT 97
[2025-01-03] MEDS: CLONIDINE 0.1MG TABLET PO PRN (09:58)
[2025-01-03] MEDS ORDERED: FUROSEMIDE 40MG/4ML VIAL IVP SCH (10:00)
[2025-01-03 10:32] LABS: BASOPHILS % 1.5 % (0.0-2.0); DIFFERENTIAL COMMENT 0; EOSINOPHILS % 1.8 % (0.0-5.0); HEMOGLOBIN. 12.8 g/dL (14.0-18.0); LYMPHOCYTES % 16.6 % (20.0-50.0); MEAN CORPUSCULAR HEMOGLOBIN 29.1 pg (28.0-32.0); MEAN CORPUSCULAR HGB CONC 31.2 g/dL (31.0-37.0); MEAN CORPUSCULAR VOLUME 93.3 fL (80.0-94.0); MEAN PLATELET VOLUME 9.3 fl (7.4-10.4); MONOCYTES % 9.4 % (2.0-8.0); NEUTROPHILS % 70.7 % (40.0-76.0); PLATELET 180 x1000/uL (130-400); RED CELL DISTRIBUTION WIDTH 17.6 % (11.6-14.6)
[2025-01-03 10:37] LABS: CHLORIDE 104 mEq/L (98-107); POTASSIUM 4.2 mEq/L (3.5-5.1); SODIUM 137 mEq/L (136-145)
[2025-01-03 10:38] LABS: CARBON DIOXIDE 23 mEq/L (21-32)
[2025-01-03 10:43] LABS: CREATININE 1.2 mg/dL (0.6-1.3); GLUCOSE 180 mg/dL (70-105); UREA NITROGEN BLOOD 21 mg/dL (9-23)
[2025-01-03 10:45] LABS: ALANINE AMINOTRANSFERASE 24 IU/L (10-49); ALBUMIN 3.3 g/dL (3.2-4.8); ASPARTATE AMINOTRANSFERASE 29 IU/L (<34); BILIRUBIN TOTAL 1.1 mg/dL (0.1-1.0); PROTEIN TOTAL 6.7 g/dL (6.0-8.3)
[2025-01-03 12:00] VITALS: BP 117/92; PULSE 88; RESP 19; TEMP 36.5; O2SAT 98
[2025-01-03 12:04] LABS: TROPONIN I HIGH SENSITIVITY 21 ng/L (3.0-53)
[2025-01-03] MEDS: FUROSEMIDE 40MG/4ML VIAL IVP SCH (12:20)
[2025-01-03] MEDS: ENOXAPARIN 80MG/0.8ML SYR SUBCUT SCH (12:21)
== END 2025-01-03 15:55 | disposition left against medical advice (07) | DRG 194 ==
LOC: ER 17:55 → 6WST 22:41 → EDBEDREQTM 01-03 00:52 → EDBEDREQ 01-03 00:52
PROVIDERS: ADMIT Internal Medicine; ATTEND Internal Medicine
DX: I11.0 Hypertensive heart disease with heart failure (principal); I42.0 Dilated cardiomyopathy; Z79.01 Long term (current) use of anticoagulants; E11.9 Type 2 diabetes mellitus without complications; I25.10 Atherosclerotic heart disease of native coronary artery without angina pectoris; Z53.21 Procedure and treatment not carried out due to patient leaving prior to being seen by health care provider; J44.9 Chronic obstructive pulmonary disease, unspecified; I48.91 Unspecified atrial fibrillation; I50.23 Acute on chronic systolic (congestive) heart failure; E78.5 Hyperlipidemia, unspecified; I07.1 Rheumatic tricuspid insufficiency; Z79.899 Other long term (current) drug therapy; Z87.891 Personal history of nicotine dependence
CPT/HCPCS: 36415; 71045; 80048; 80053; 81003; 82962; 83880; 84484; 85025; 93005; 99285; J1650; J1940

== ENCOUNTER 2025-03-17 14:44 | Inpatient (IN) | payer MEDICAID ==
[~2025-03-17] VITALS: Ht 165.1 cm; Wt 94.5 kg
[~2025-03-17 14:44] MED LIST changes: -ATOR10TA69 PO; -CARV25TA47 PO; -CELE-116 PO; -CYCL5TAB3 PO; -DICL100G58 TP; -DIGO125T80 MT; -DULO30CA52 PO; -ERGO1250 PO; +FURO-151 MT; -FURO-152 MT; -FURO20TA4 PO; -GABA-290 PO; -GLIP5TAB22 PO; -LISI-186 PO; -MELA3TAB40 PO; -METO2.5T2 MT; -OXYC30TA2 PO; -SPIR25TA PO; -SPIR25TA6; -TRAM50TA3 PO; -TRAZ-251 PO
[2025-03-17 16:35] VITALS: RESP 23
[2025-03-17] MEDS: ASPIRIN 81MG TABLET PO ONE (16:39)
[2025-03-17] MEDS: FUROSEMIDE 40MG/4ML VIAL IV ONE (16:39)
[2025-03-17 16:43] LABS: BASOPHILS % 0.7 % (0.0-2.0); EOSINOPHILS % 0.3 % (0.0-5.0); HEMATOCRIT. 41.9 % (42.0-52.0); HEMOGLOBIN. 13.4 g/dL (14.0-18.0); LYMPHOCYTES % 7.4 % (20.0-50.0); MEAN CORPUSCULAR HEMOGLOBIN 28.4 pg (28.0-32.0); MEAN PLATELET VOLUME 9.4 fl (7.4-10.4); MONOCYTES % 11.9 % (2.0-8.0); NEUTROPHILS % 79.7 % (40.0-76.0); PLATELET 241 x1000/uL (130-400); RED BLOOD CELL COUNT 4.71 mill/uL (4.7-6.1); RED CELL DISTRIBUTION WIDTH 22.5 % (11.6-14.6)
[2025-03-17 16:44] LABS: ADD RBC MORPHOLOGY YES; DIFFERENTIAL COMMENT 1
[2025-03-17 16:59] LABS: CHLORIDE 105 mEq/L (98-107); POTASSIUM 4.6 mEq/L (3.5-5.1); SODIUM 138 mEq/L (136-145)
[2025-03-17 17:00] LABS: CARBON DIOXIDE 28 mEq/L (21-32)
[2025-03-17 17:01] LABS: CALCIUM 8.5 mg/dL (8.7-10.4)
[2025-03-17 17:05] LABS: CREATININE 1.2 mg/dL (0.6-1.3); GLUCOSE 230 mg/dL (70-105); UREA NITROGEN BLOOD 22 mg/dL (9-23)
[2025-03-17 17:07] LABS: TROPONIN I HIGH SENSITIVITY 17 ng/L (3.0-53)
[2025-03-17 17:08] LABS: ANISOCYTOSIS 2+; PLATELET ESTIMATE NORMAL
[2025-03-17] MEDS ORDERED: ACETAMINOPHEN 325MG TABLET PO PRN ×2 (20:15)
[2025-03-17] MEDS ORDERED: ONDANSETRON HCL 4MG/2ML INJ IV PRN (20:15)
[2025-03-17] MEDS ORDERED: IPRATROPIUM/ALBUTEROL 0.5-3(2.5)MG/3ML NEB HHN PRN (20:15)
[2025-03-17 20:24] LABS: TROPONIN I HIGH SENSITIVITY 17 ng/L (3.0-53)
[2025-03-17] MEDS ORDERED: HYDRALAZINE 20MG/ML VIAL IV PRN (20:30)
[2025-03-17] MEDS ORDERED: DEXTROSE 50% WATER 50ML SYRINGE IV PRN (20:30)
[2025-03-17 21:00] VITALS: BP 124/106; PULSE 91; RESP 23; TEMP 36.6; O2SAT 97
[2025-03-17] MEDS: INSULIN LISPRO 100 UNITS/ML SUBCUT SCH (21:00)
[2025-03-17] MEDS: ATORVASTATIN CALCIUM 40MG TABLET PO SCH (21:25)
[2025-03-17] MEDS: FUROSEMIDE 20MG/2ML VIAL IVP NR (21:25)
[2025-03-17 21:26] VITALS: BP 133/100; PULSE 95; RESP 10; O2SAT 98
[2025-03-17] MEDS: SACUBITRIL/VALSARTAN 24MG/26MG TABLET PO SCH (21:27)
[2025-03-17] MEDS: EMPAGLIFLOZIN 10MG TABLET PO SCH (21:27)
[2025-03-17] MEDS: APIXABAN 5 MG TABLET PO SCH (21:27)
[2025-03-17] MEDS: HYDRALAZINE HCL 100MG TABLET PO SCH (21:27)
[2025-03-17] MEDS: BLOOD SUGAR DIAGNOSTIC STRIP TEST SCH (21:28)
[2025-03-17 22:03] VITALS: BP 160/99; RESP 20; O2SAT 93
[2025-03-17 22:07] VITALS: BP 133/100; PULSE 93; RESP 25; TEMP 37.8
[2025-03-17 22:45] LABS: IRON 31 ug/dL (65-175)
[2025-03-17 22:46] LABS: ETHANOL BLOOD < 10 mg/dL (<10)
[2025-03-17 22:47] LABS: ALANINE AMINOTRANSFERASE 17 IU/L (10-49); ALBUMIN 3.2 g/dL (3.2-4.8); ASPARTATE AMINOTRANSFERASE 28 IU/L (<34)
[2025-03-17 22:48] LABS: BILIRUBIN DIRECT 1.4 mg/dL (<=3.0); BILIRUBIN TOTAL 2.2 mg/dL (0.1-1.0); PHOSPHORUS 3.9 mg/dL (2.5-4.9); PROTEIN TOTAL 7.6 g/dL (6.0-8.3); TOTAL IRON BINDING CAPACITY 91 ug/dl (250-425)
[2025-03-18] VITALS (13 sets, daily range): BP systolic 91–158; BP diastolic 57–94; PULSE 78–92; RESP 16–26; TEMP 36.4–36.9; O2SAT 94–100
[2025-03-18 00:26] LABS: CLARITY URINE CLEAR (CLEAR); COLOR URINE YELLOW (YELLOW); GLUCOSE URINE NEGATIVE (NEGATIVE); KETONES URINE NEGATIVE (NEGATIVE); LEUKOCYTE ESTERASE URINE NEGATIVE (NEGATIVE); NITRITE URINE NEGATIVE (NEGATIVE); OCCULT BLOOD URINE NEGATIVE (NEGATIVE); PROTEIN URINE NEGATIVE (NEGATIVE); SPECIFIC GRAVITY URINE 1.009 (1.005-1.030)
[2025-03-18 00:57] LABS: *AMPHETAMINES SCREEN URINE NEGATIVE (NEGATIVE); *BARBITURATES SCREEN URINE NEGATIVE (NEGATIVE); *BENZODIAZEPINES SCREEN URINE NEGATIVE (NEGATIVE)
[2025-03-18 00:58] LABS: *COCAINE SCREEN URINE NEGATIVE (NEGATIVE); CANNABINOID URINE SCREEN NEGATIVE (NEGATIVE); ECSTASY MDMA SCREEN URINE NEGATIVE (NEGATIVE); METHADONE URINE SCREEN NEGATIVE (NEGATIVE); OPIATES URINE SCREEN NEGATIVE (NEGATIVE); PHENCYCLIDINE URINE SCREEN PRESUMTIVE POSITIVE (NEGATIVE)
[2025-03-18] MEDS: LORAZEPAM 0.5MG TABLET PO PRN (01:47)
[2025-03-18 06:49] LABS: HEMOGLOBIN. 12.6 g/dL (14.0-18.0); MEAN CORPUSCULAR HEMOGLOBIN 28.3 pg (28.0-32.0); MEAN CORPUSCULAR HGB CONC 32.3 g/dL (31.0-37.0); MEAN CORPUSCULAR VOLUME 87.5 fL (80.0-94.0); MEAN PLATELET VOLUME 8.9 fl (7.4-10.4); PLATELET 227 x1000/uL (130-400); RED BLOOD CELL COUNT 4.45 mill/uL (4.7-6.1); WHITE BLOOD COUNT 8.1 x1000/uL (4.5-11.0)
[2025-03-18 07:01] LABS: CALCIUM 8.6 mg/dL (8.7-10.4); CHLORIDE 107 mEq/L (98-107); POTASSIUM 3.8 mEq/L (3.5-5.1); SODIUM 140 mEq/L (136-145)
[2025-03-18 07:02] LABS: CARBON DIOXIDE 24 mEq/L (21-32)
[2025-03-18 07:03] LABS: TROPONIN I HIGH SENSITIVITY 18 ng/L (3.0-53)
[2025-03-18 07:06] LABS: T4 FREE 1.18 ng/dL (0.89-1.76)
[2025-03-18 07:07] LABS: CREATININE 0.9 mg/dL (0.6-1.3); GLUCOSE 129 mg/dL (70-105); TRIGLYCERIDE 49 mg/dL (0-150); UREA NITROGEN BLOOD 21 mg/dL (9-23)
[2025-03-18 07:08] LABS: ALBUMIN 2.7 g/dL (3.2-4.8); LDL CHOLESTEROL 53 mg/dL (5-100)
[2025-03-18 07:09] LABS: CHOLESTEROL 87 mg/dL (<200); HDL CHOLESTEROL < 20 mg/dL (>55)
[2025-03-18 07:28] LABS: DIFFERENTIAL COMMENT 1
[2025-03-18] MEDS: ASPIRIN 81MG EC TABLET PO SCH (08:35)
[2025-03-18] MEDS: SPIRONOLACTONE 25MG TABLET PO SCH (08:36)
[2025-03-18] MEDS: AMLODIPINE 10MG TABLET PO SCH (08:36)
[2025-03-18] MEDS: FERROUS SULFATE 325MG TABLET PO SCH (08:36)
[2025-03-18] MEDS: FUROSEMIDE 40MG/4ML VIAL IV SCH (08:37)
[2025-03-18] MEDS: GUAIFENESIN 200MG/10ML SUGAR FREE UDC PO PRN (08:37)
[2025-03-18] MEDS: PANTOPRAZOLE 40MG DR TABLET PO SCH (08:41)
[2025-03-18 08:47] LABS: BG BASE EXCESS 2.3 mmol/L (-2.0-3.0); BG CARBOXYHEMOGLOBIN 1.2 % (0.5-1.5); BG DEOXYHEMOGLOBIN 12.2 % (0.0-5.0); BG FRACTION INSPIRED OXYGEN 21; BG HCO3 ACT 25.5 mmol/L (21.0-28.0); BG OXYGEN SATURATION 87.7 % (94.0-98.0); BG OXYHEMOGLOBIN 86.6 % (94.0-98.0); BG PCO2 35.3 mmHg (35.0-48.0); BG PH 7.477 (7.350-7.450); BG PO2 52.8 mmHg (83.0-108.0); BG SAMPLE SITE RIGHT RADIAL; BG TOTAL HEMOGLOBIN 13.9 g/dL (13.5-17.5); BG VENT MODE ROOM AIR
[2025-03-18] MEDS: HYDRALAZINE HCL 25MG TABLET PO SCH (12:22)
[2025-03-18] MEDS: FUROSEMIDE 100MG/10ML VIAL IV SCH (17:15)
[2025-03-18 17:24] LABS: TROPONIN I HIGH SENSITIVITY 13 ng/L (3.0-53)
[2025-03-18 17:33] LABS: CLARITY URINE CLEAR (CLEAR); COLOR URINE DARK YELLOW (YELLOW); GLUCOSE URINE 3+ (NEGATIVE); KETONES URINE NEGATIVE (NEGATIVE); LEUKOCYTE ESTERASE URINE TRACE (NEGATIVE); NITRITE URINE NEGATIVE (NEGATIVE); OCCULT BLOOD URINE 3+ (NEGATIVE); PROTEIN URINE 2+ (NEGATIVE); SPECIFIC GRAVITY URINE 1.025 (1.005-1.030)
[2025-03-18 17:57] LABS: BACTERIA URINE 1+; RBC URINE TNTC /hpf (0-2); SQUAMOUS EPITHELIAL CELL URINE 1+ /lpf (RARE/1+); WBC URINE 0-2 /hpf (0-2)
[2025-03-18 18:05] LABS: PLATELET ESTIMATE NORMAL
[2025-03-18 18:06] LABS: ANISOCYTOSIS 2+
[2025-03-19] VITALS (10 sets, daily range): BP systolic 92–145; BP diastolic 71–119; PULSE 86–96; RESP 18–39; TEMP 36.4–36.7; O2SAT 92–100
[2025-03-19 06:37] LABS: BASOPHILS % 0.5 % (0.0-2.0); HEMATOCRIT. 39.3 % (42.0-52.0); HEMOGLOBIN. 12.6 g/dL (14.0-18.0); LYMPHOCYTES % 8.4 % (20.0-50.0); MEAN CORPUSCULAR HEMOGLOBIN 28.3 pg (28.0-32.0); MEAN CORPUSCULAR HGB CONC 31.9 g/dL (31.0-37.0); MEAN CORPUSCULAR VOLUME 88.7 fL (80.0-94.0); MEAN PLATELET VOLUME 9.1 fl (7.4-10.4); MONOCYTES % 11.2 % (2.0-8.0); NEUTROPHILS % 78.9 % (40.0-76.0); PLATELET 237 x1000/uL (130-400); RED BLOOD CELL COUNT 4.43 mill/uL (4.7-6.1); RED CELL DISTRIBUTION WIDTH 22.1 % (11.6-14.6); WHITE BLOOD COUNT 6.8 x1000/uL (4.5-11.0)
[2025-03-19 06:44] LABS: DIFFERENTIAL COMMENT 1
[2025-03-19 06:45] LABS: CARBON DIOXIDE 26 mEq/L (21-32); CHLORIDE 108 mEq/L (98-107); POTASSIUM 4.2 mEq/L (3.5-5.1); SODIUM 141 mEq/L (136-145)
[2025-03-19 06:46] LABS: CALCIUM 8.4 mg/dL (8.7-10.4)
[2025-03-19 06:51] LABS: CREATININE 0.8 mg/dL (0.6-1.3); GLUCOSE 110 mg/dL (70-105); UREA NITROGEN BLOOD 18 mg/dL (9-23)
[2025-03-19] MEDS: AMLODIPINE 2.5MG TABLET PO SCH (09:00)
[2025-03-19] MEDS: MAGNESIUM OXIDE 400MG TABLET PO SCH (16:45)
[2025-03-19] MEDS: FUROSEMIDE 40MG/4ML VIAL IV SCH (16:52)
[2025-03-19] MEDS: ENOXAPARIN 100MG/ML SYR SUBCUT NR (16:52)
[2025-03-19 18:57] LABS: INR 1.6; PROTHROMBIN TIME 16.1 sec (9.6-11.0)
[2025-03-20] VITALS: BP 90/70; PULSE 94; RESP 23; TEMP 36.4; O2SAT 81
[2025-03-20 04:00] VITALS: BP 107/76; PULSE 92; RESP 23; TEMP 36.5; O2SAT 96
[2025-03-20 06:54] LABS: BASOPHILS % 0.8 % (0.0-2.0); EOSINOPHILS % 1.6 % (0.0-5.0); HEMATOCRIT. 39.7 % (42.0-52.0); HEMOGLOBIN. 12.6 g/dL (14.0-18.0); LYMPHOCYTES % 11.8 % (20.0-50.0); MEAN CORPUSCULAR HEMOGLOBIN 27.8 pg (28.0-32.0); MEAN CORPUSCULAR HGB CONC 31.9 g/dL (31.0-37.0); MEAN CORPUSCULAR VOLUME 87.2 fL (80.0-94.0); MEAN PLATELET VOLUME 9.1 fl (7.4-10.4); MONOCYTES % 13.8 % (2.0-8.0); PLATELET 258 x1000/uL (130-400); RED BLOOD CELL COUNT 4.55 mill/uL (4.7-6.1); RED CELL DISTRIBUTION WIDTH 22.2 % (11.6-14.6); WHITE BLOOD COUNT 5.9 x1000/uL (4.5-11.0)
[2025-03-20 07:01] LABS: CHLORIDE 105 mEq/L (98-107); POTASSIUM 4.3 mEq/L (3.5-5.1); SODIUM 139 mEq/L (136-145)
[2025-03-20 07:02] LABS: CARBON DIOXIDE 27 mEq/L (21-32)
[2025-03-20 07:07] LABS: GLUCOSE 88 mg/dL (70-105); UREA NITROGEN BLOOD 20 mg/dL (9-23)
[2025-03-20 07:14] LABS: DIFFERENTIAL COMMENT 1
[2025-03-20 08:00] VITALS: BP 98/66; PULSE 87; RESP 15; TEMP 36.6; O2SAT 98
[2025-03-20] MEDS: ENOXAPARIN 100MG/ML SYR SUBCUT SCH (08:47)
[2025-03-20 12:00] VITALS: BP 104/68; PULSE 86; RESP 30; TEMP 36.9; O2SAT 98
[2025-03-20 16:00] VITALS: BP 92/75; PULSE 86; RESP 19; TEMP 36.7; O2SAT 96
[2025-03-20 20:00] VITALS: BP 95/81; PULSE 90; RESP 18; TEMP 36.6; O2SAT 94
[2025-03-20] MEDS: CARVEDILOL 3.125 MG TABLET PO SCH (20:55)
[2025-03-21] VITALS (11 sets, daily range): BP systolic 102–118; BP diastolic 74–97; PULSE 81–89; RESP 13–21; TEMP 36.5–37.1; O2SAT 94–100
[2025-03-21 06:43] LABS: BASOPHILS % 1.2 % (0.0-2.0); HEMATOCRIT. 37.5 % (42.0-52.0); HEMOGLOBIN. 12.1 g/dL (14.0-18.0); LYMPHOCYTES % 15.4 % (20.0-50.0); MEAN CORPUSCULAR HEMOGLOBIN 28.2 pg (28.0-32.0); MEAN CORPUSCULAR HGB CONC 32.3 g/dL (31.0-37.0); MEAN CORPUSCULAR VOLUME 87.4 fL (80.0-94.0); MEAN PLATELET VOLUME 9.1 fl (7.4-10.4); MONOCYTES % 13.7 % (2.0-8.0); NEUTROPHILS % 67.7 % (40.0-76.0); PLATELET 256 x1000/uL (130-400); RED BLOOD CELL COUNT 4.29 mill/uL (4.7-6.1); RED CELL DISTRIBUTION WIDTH 21.4 % (11.6-14.6); WHITE BLOOD COUNT 5.2 x1000/uL (4.5-11.0)
[2025-03-21 06:55] LABS: CARBON DIOXIDE 28 mEq/L (21-32); CHLORIDE 104 mEq/L (98-107); POTASSIUM 4.4 mEq/L (3.5-5.1); SODIUM 140 mEq/L (136-145)
[2025-03-21 06:56] LABS: CALCIUM 8.1 mg/dL (8.7-10.4)
[2025-03-21 07:00] LABS: CREATININE 1.1 mg/dL (0.6-1.3)
[2025-03-21 07:01] LABS: GLUCOSE 81 mg/dL (70-105); UREA NITROGEN BLOOD 22 mg/dL (9-23)
[2025-03-21] MEDS: FUROSEMIDE 40MG/4ML VIAL IV SCH (08:56)
[2025-03-21] MEDS ORDERED: FENTANYL CITRATE/PF 50MCG/ML 2ML VIAL ONE (10:11)
[2025-03-21] MEDS ORDERED: HEPARIN 1000 UNITS/ML 10ML ONE (10:11)
[2025-03-21] MEDS ORDERED: MIDAZOLAM HCL 2 MG/2 ML VIAL ONE (10:11)
[2025-03-21] MEDS ORDERED: IODIXANOL 320MG/ML 100 ML BOTTLE IV ONE (10:12)
[2025-03-21] MEDS ORDERED: LIDOCAINE HCL 1% 20ML VIAL ONE (10:13)
[2025-03-22] VITALS: BP 103/85; PULSE 94; RESP 24; TEMP 36.8; O2SAT 97
[2025-03-22 04:00] VITALS: BP 108/76; PULSE 86; RESP 0; RESP 20; TEMP 36.9; O2SAT 99
[2025-03-22] MEDS ORDERED: CARV25TA47 PO (07:54)
[2025-03-22] MEDS ORDERED: SPIR25TA6 PO ×2 (07:54→08:06)
[2025-03-22 08:00] VITALS: BP 103/81; PULSE 82; RESP 26; TEMP 37.1
[2025-03-22] MEDS ORDERED: LIP40 PO (08:06)
[2025-03-22] MEDS ORDERED: SACU1TAB PO (08:06)
[2025-03-22] MEDS ORDERED: ASPI-1406 PO (08:06)
[2025-03-22] MEDS ORDERED: EMPA10TA PO (08:06)
[2025-03-22] MEDS ORDERED: AMLO2.5T45 PO (08:06)
[2025-03-22] MEDS ORDERED: APIX5TAB PO (08:06)
[2025-03-22] MEDS ORDERED: FURO-151 MT (08:06)
[2025-03-22] MEDS ORDERED: COR3 PO (08:06)
[2025-03-22 08:09] LABS: BASOPHILS % 1.2 % (0.0-2.0); DIFFERENTIAL COMMENT 0; EOSINOPHILS % 2.6 % (0.0-5.0); HEMATOCRIT. 37.1 % (42.0-52.0); HEMOGLOBIN. 11.8 g/dL (14.0-18.0); LYMPHOCYTES % 17.5 % (20.0-50.0); MEAN CORPUSCULAR HEMOGLOBIN 27.8 pg (28.0-32.0); MEAN CORPUSCULAR HGB CONC 31.9 g/dL (31.0-37.0); MEAN PLATELET VOLUME 8.8 fl (7.4-10.4); MONOCYTES % 11.1 % (2.0-8.0); NEUTROPHILS % 67.6 % (40.0-76.0); PLATELET 250 x1000/uL (130-400); RED BLOOD CELL COUNT 4.27 mill/uL (4.7-6.1); RED CELL DISTRIBUTION WIDTH 21.3 % (11.6-14.6); WHITE BLOOD COUNT 4.2 x1000/uL (4.5-11.0)
[2025-03-22 08:42] LABS: CHLORIDE 103 mEq/L (98-107); POTASSIUM 5.1 mEq/L (3.5-5.1); SODIUM 137 mEq/L (136-145)
[2025-03-22 08:43] LABS: CARBON DIOXIDE 29 mEq/L (21-32)
[2025-03-22 08:44] LABS: CALCIUM 8.7 mg/dL (8.7-10.4)
[2025-03-22 08:48] LABS: CREATININE 1.2 mg/dL (0.6-1.3); GLUCOSE 113 mg/dL (70-105)
[2025-03-22 08:49] LABS: UREA NITROGEN BLOOD 17 mg/dL (9-23)
[2025-03-22 12:00] VITALS: BP 97/77; PULSE 79; TEMP 36.6
[2025-03-22 13:13] VITALS: BP 97/77; PULSE 79; TEMP 97.6; O2SAT 79
== END 2025-03-22 15:00 | disposition home or self-care (01) | DRG 182 ==
LOC: ER 14:44 → EDBEDREQTM 18:28 → EDBEDREQ 18:28 → 5EST 19:54
PROVIDERS: ADMIT Internal Medicine; ATTEND Internal Medicine
PROC: 5A09357 Assistance with Respiratory Ventilation, Less than 24 Consecutive Hours, Continuous Positive Airway Pressure (ICD-10-PCS; 2025-03-20)
PROC: B3121ZZ Fluoroscopy of Left Subclavian Artery using Low Osmolar Contrast (ICD-10-PCS; principal; 2025-03-21)
PROC: 05763ZZ Dilation of Left Subclavian Vein, Percutaneous Approach (ICD-10-PCS; 2025-03-21)
PROC: 05C63ZZ Extirpation of Matter from Left Subclavian Vein, Percutaneous Approach (ICD-10-PCS; 2025-03-21)
PROC: B5181ZZ Fluoroscopy of Superior Vena Cava using Low Osmolar Contrast (ICD-10-PCS; 2025-03-21)
PROC: 05C83ZZ Extirpation of Matter from Left Axillary Vein, Percutaneous Approach (ICD-10-PCS; 2025-03-21)
DX: I82.B12 Acute embolism and thrombosis of left subclavian vein (principal); J96.21 Acute and chronic respiratory failure with hypoxia; I50.43 Acute on chronic combined systolic (congestive) and diastolic (congestive) heart failure; I82.A12 Acute embolism and thrombosis of left axillary vein; I42.9 Cardiomyopathy, unspecified; E83.51 Hypocalcemia; J39.8 Other specified diseases of upper respiratory tract; I11.0 Hypertensive heart disease with heart failure; I82.C12 Acute embolism and thrombosis of left internal jugular vein; Z79.01 Long term (current) use of anticoagulants; J44.9 Chronic obstructive pulmonary disease, unspecified; D64.9 Anemia, unspecified; I48.91 Unspecified atrial fibrillation; R74.01 Elevation of levels of liver transaminase levels; F19.10 Other psychoactive substance abuse, uncomplicated; G47.33 Obstructive sleep apnea (adult) (pediatric); I49.3 Ventricular premature depolarization; R31.0 Gross hematuria; E11.9 Type 2 diabetes mellitus without complications; I82.622 Acute embolism and thrombosis of deep veins of left upper extremity; E66.9 Obesity, unspecified; I07.1 Rheumatic tricuspid insufficiency; F17.210 Nicotine dependence, cigarettes, uncomplicated; Z79.899 Other long term (current) drug therapy; Z59.00 Homelessness unspecified; I25.2 Old myocardial infarction; Z91.148 Patient's other noncompliance with medication regimen for other reason; Z79.84 Long term (current) use of oral hypoglycemic drugs; Z79.82 Long term (current) use of aspirin; Z68.34 Body mass index [BMI] 34.0-34.9, adult
CPT/HCPCS: 36415; 36600; 71045; 71250; 76604; 76705; 80048; 80061; 80076; 80305; 80320; 81003; 82040; 82375; 82728; 82805; 82962; 83540; 83550; 83735; 83880; 84100; 84439; 84443; 84484; 85025; 85347; 86850; 86900; 93005; 93306; 93971; 94070; 94660; 94760; 99285; A4606; A6449; J1644; J1650; J1815; J1940; J2250; J3010; J3490; Q9967; G0480